=== PATIENT | male | born 1940 | race Caucasian/White ===

== ENCOUNTER 2020-04-27 12:20 | Emergency (ER) | payer OTHER ==
[2020-04-27] MEDS ORDERED: TETANUS & DIPHTHERIA TOX,ADULT 0.5 ML VIAL ONE (14:29)
--- NOTE | 2020-04-27 14:59 | ER ---
Nurse's Notes [facility] Name: Sushant Beebe Age: 79 yrs Sex: Male : 1940 Arrival Date: 04/27/2020 Time: 12:23 Bed 19 Private MD: Diagnosis: Other slipping, tripping and stumbling and falls;Pain in left knee;Pain in right knee;Cellulitis of left lower limb Presentation: 04/27 12:30 Chief complaint: Patient states: Fell 2 nights ago. Knocked over a tray when getting ll1 out of bed. Both legs got caught under the bed, abrasions noted. Bilateral leg pain since. Coronavirus screen: Client denies travel out of the [place] in the last 14 days. At this time, the client does not indicate any symptoms associated with coronavirus-19. Ebola Screen: Patient denies travel to an Ebola-affected area in the 21 days before illness onset. Initial Sepsis Screen: Does the patient meet any 2 criteria? No. Patient's initial sepsis screen is negative. Risk Assessment: Do you want to hurt yourself or someone else? Patient reports no desire to harm self or others. Onset of symptoms was April 25, 2020. 12:30 Method Of Arrival: Wheelchair ll1 12:30 Acuity: JAYLON 3 ll1 14:53 Care prior to arrival: None. Mechanism of Injury: Fall from standing position. Trauma ph event details: Injury occurred in the [facility], Injury occurred: at home. Injury occurred: April 27, 2020. 14:54 Initial Sepsis Screen: Does the patient have a suspected source of infection? No. ph Patient's initial sepsis screen is negative. Trauma Activation: Not Applicable Physician: ED Physician; Name: ; Notified At: ; Arrived At: Physician: General Surgeon; Name: ; Notified At: ; Arrived At: Physician: Radiology; Name: ; Notified At: ; Arrived At: Physician: Respiratory; Name: ; Notified At: ; Arrived At: Physician: Lab; Name: ; Notified At: ; Arrived At: Historical: - Allergies: 12:32 No Known Allergies; ll1 - PMHx: 12:32 blind in L eye; CVA; Pacemaker; Hypertension; Diabetes - NIDDM; CHF; COPD; blood clot ll1 in R leg; CAD; - PSHx: 12:32 pacemaker; Cholecystectomy; knee replacement; ll1 - Immunization history:: Flu vaccine is not up to date. - Social history:: Smoking status: Patient/guardian denies using tobacco, the patient reports quitting approximately 15 years ago. - Immunization history: Last tetanus immunization: unknown. Screenin:52 Abuse screen: Denies threats or abuse. Denies injuries from another. Nutritional ph screening: No deficits noted. Tuberculosis screening: No symptoms or risk factors identified. Fall Risk None identified. Primary Survey: 14:51 NO uncontrolled hemorrhage observed. A: The patient is alert. Airway: patent, No ph supplemental oxygen in use on arrival. Oral cavity: clear. Breathing/Chest: Respiratory pattern: regular, Respiratory effort: spontaneous, unlabored. Circulation: Skin color: pink, Skin temperature: warm, dry. Disability Alert. Exposure/Environment: There is no evidence of uncontrolled external bleeding. Obvious injury(ies) are noted at this time: abrasions to bilateral legs, no bleeding noted. 16:28 Reassessment Airway Airway Patent Breathing/Chest Respiratory pattern Regular ph Respiratory effort Spontaneous Unlabored Circulation Color Renova Temperature Warm Dry Disability Alert. Assessment: 14:50 General: Appears in no apparent distress. comfortable, Behavior is calm, cooperative, ph appropriate for age, Denies fever, feeling ill. Pain: Complains of pain in right leg and left leg. Neuro: Level of Consciousness is awake, alert, obeys commands, Oriented to person, place, time, situation. Cardiovascular: Capillary refill < 3 seconds in bilateral fingers Patient's skin is warm and dry. Respiratory: Airway is patent Respiratory effort is even, unlabored, Respiratory pattern is regular, symmetrical. GI: No signs and/or symptoms were reported involving the gastrointestinal system. Derm: Skin is healthy with good turgor, Skin is pink, warm \T\ dry. Musculoskeletal: Circulation, motion, and sensation intact. Range of motion: intact in all extremities. Injury Description: Abrasion sustained to right leg and left leg is multiple abrasions noted to front of bilateral legs from knees down. 15:28 Reassessment: Patient appears in no apparent distress at this time. Patient and/or ph family updated on plan of care and expected duration. Pain level reassessed. Patient is alert, oriented x 3, equal unlabored respirations, skin warm/dry/pink. D/C pending Xray results of L leg. 16:24 Reassessment: Patient appears in no apparent distress at this time. Patient and/or ph family updated on plan of care and expected duration. Pain level reassessed. Patient is alert, oriented x 3, equal unlabored respirations, skin warm/dry/pink. Abrasion to R great toe cleaned and bandage, no signs of infection or active bleeding noted. Vital Signs: 12:30 Pulse 70; Resp 18; Temp 98.0; Pulse Ox 98% ; Weight 90.72 kg; Height 6 ft. 0 in. ll1 (182.88 cm); Pain 8/10; 12:33 BP 104 / 77; ll1 16:26 BP 109 / 78; Pulse 68; Resp 18; Temp 97.8; Pulse Ox 99% on R/A; ph 12:30 Body Mass Index 27.12 (90.72 kg, 182.88 cm) ll1 Orlando Coma Score: 14:52 Eye Response: spontaneous(4). Verbal Response: oriented(5). Motor Response: obeys ph commands(6). Total: 15. 16:26 Eye Response: spontaneous(4). Verbal Response: oriented(5). Motor Response: obeys ph commands(6). Total: 15. Trauma Score (Adult): 14:52 Eye Response: spontaneous(1); Verbal Response: oriented(1); Motor Response: obeys ph commands(2); Systolic BP: > 89 mm Hg(4); Respiratory Rate: 10 to 29 per min(4); Sandy Score: 15; Trauma Score: 12 16:26 Eye Response: spontaneous(1); Verbal Response: oriented(1); Motor Response: obeys ph commands(2); Systolic BP: > 89 mm Hg(4); Respiratory Rate: 10 to 29 per min(4); Orlando Score: 15; Trauma Score: 12 ED Course: 12:23 Patient arrived in ED. mr 12:31 Triage completed. ll1 12:33 Arm band placed on. ll1 12:38 Jarod Oropeza MD is Attending Physician. kdr 14:10 Jp Camarena, RN is Primary Nurse. ll1 14:12 Laura Bhatia, RN is Primary Nurse. ph 14:54 Patient has correct armband on for positive identification. Placed in gown. Bed in low ph position. Call light in reach. Side rails up X 1. Pulse ox on. NIBP on. Door closed. Noise minimized. 14:54 Patient maintains SpO2 saturation greater than 95% on room air. Thermoregulation: warm ph blanket given to patient. 15:03 Knee Left 3 View XRAY In Process Unspecified. EDMS 15:45 Wound care: to abrasion, located on left leg and right leg was cleaned with Hibiclens, ph irrigated with normal saline, dressed with Neosporin, Kerlix. 15:48 Knee Right 3 View XRAY In Process Unspecified. EDMS 16:28 No provider procedures requiring assistance completed. Patient did not have IV access ph during this emergency room visit. Administered Medications: 15:23 Drug: Tetanus-Diphtheria Toxoid Adult 0.5 ml {Toe Stapler: iTiffin. Exp: ph 09/29/2022. Lot #: [id number]. } Route: IM; Site: right deltoid; 16:28 Follow up: Response: No adverse reaction ph 16:23 Drug: Ibuprofen 600 mg Route: PO; ph 16:29 Follow up: Response: No adverse reaction ph 16:24 Drug: KeFLEX 500 mg Route: PO; ph 16:28 Follow up: Response: No adverse reaction ph Intake: 14:57 PO: 0ml; Total: 0ml. ph 16:26 PO: 0ml; Total: 0ml. ph Output: 14:57 Urine: 0ml; Total: 0ml. ph 16:26 Urine: 0ml; Total: 0ml. ph Outcome: 14:58 Discharge ordered by . kdr 16:28 Discharged to home via wheelchair, with family. ph 16:28 Condition: good 16:28 Discharge instructions given to patient, Instructed on discharge instructions, follow up and referral plans. medication usage, Demonstrated understanding of instructions, follow-up care, medications, Prescriptions given X 1. 16:28 Patient's length of stay was not longer than 2 hours. ph 16:29 Patient left the ED. ph Signatures: Dispatcher [employer] EDMS Jarod Oropeza MD MD kdr Rivera, Carlita Laura Bhatia RN RN ph Jp Camarena RN RN [facility]
--- NOTE | 2020-04-27 14:59 | EDPHYS ---
Physician Documentation [facility] Name: Sushant Beebe Age: 79 yrs Sex: Male : 1940 Arrival Date: 04/27/2020 Time: 12:23 Bed 19 Private MD: ED Physician Jarod Oropeza HPI: 04/28 10:14 This 79 yrs old Male presents to ER via Wheelchair with complaints of Fall kdr Injury. 10:14 Details of fall: The patient fell from seated position, off the edge of a bed. Onset: kdr The symptoms/episode began/occurred suddenly, 2 day(s) ago. Associated injuries: The patient sustained right carr, anterior aspect of right ankle, left carr and anterior aspect of left ankle, abrasion, contusion, ecchymosis, painful injury. 10:14 Severity of symptoms: At their worst the symptoms were mild, in the emergency kdr department the symptoms are unchanged. The patient has not experienced similar symptoms in the past. The patient has not recently seen a physician. Historical: - Allergies: 04/27 12:32 No Known Allergies; ll1 - PMHx: 12:32 blind in L eye; CVA; Pacemaker; Hypertension; Diabetes - NIDDM; CHF; COPD; blood clot ll1 in R leg; CAD; - PSHx: 12:32 pacemaker; Cholecystectomy; knee replacement; ll1 - Immunization history:: Flu vaccine is not up to date. - Social history:: Smoking status: Patient/guardian denies using tobacco, the patient reports quitting approximately 15 years ago. - Immunization history: Last tetanus immunization: unknown. ROS: 04/28 10:14 Constitutional: Negative for fever, chills, and weight loss, Eyes: Negative for injury, kdr pain, redness, and discharge, ENT: Negative for injury, pain, and discharge, Neck: Negative for injury, pain, and swelling, Cardiovascular: Negative for chest pain, palpitations, and edema, Respiratory: Negative for shortness of breath, cough, wheezing, and pleuritic chest pain, Abdomen/GI: Negative for abdominal pain, nausea, vomiting, diarrhea, and constipation, Back: Negative for injury and pain, : Negative for injury, bleeding, discharge, and swelling, Neuro: Negative for headache, weakness, numbness, tingling, and seizure activity. Psych: Negative for depression, anxiety, suicide ideation, homicidal ideation, and hallucinations, Allergy/Immunology: Negative for hives, rash, and allergies, Endocrine: Negative for neck swelling, polydipsia, polyuria, polyphagia, and marked weight changes, Hematologic/Lymphatic: Negative for swollen nodes, abnormal bleeding, and unusual bruising. MS/extremity: Positive for injury or acute deformity, abrasion, erythema, pain, swelling, tenderness, of the right carr and left carr. Exam: 10:14 Constitutional: This is a well developed, well nourished patient who is awake, alert, kdr and in no acute distress. Head/Face: Normocephalic, atraumatic. Eyes: Pupils equal round and reactive to light, extra-ocular motions intact. Lids and lashes normal. Conjunctiva and sclera are non-icteric and not injected. Cornea within normal limits. Periorbital areas with no swelling, redness, or edema. Neck: Trachea midline, no thyromegaly or masses palpated, and no cervical lymphadenopathy. Supple, full range of motion without nuchal rigidity, or vertebral point tenderness. No Meningismus. Chest/axilla: Normal chest wall appearance and motion. Nontender with no deformity. No lesions are appreciated. Cardiovascular: Regular rate and rhythm with a normal S1 and S2. No gallops, murmurs, or rubs. Normal PMI, no JVD. No pulse deficits. Respiratory: Lungs have equal breath sounds bilaterally, clear to auscultation and percussion. No rales, rhonchi or wheezes noted. No increased work of breathing, no retractions or nasal flaring. Abdomen/GI: Soft, non-tender, with normal bowel sounds. No distension or tympany. No guarding or rebound. No evidence of tenderness throughout. Back: No spinal tenderness. No costovertebral tenderness. Full range of motion. Neuro: Awake and alert, GCS 15, oriented to person, place, time, and situation. Cranial nerves II-XII grossly intact. Motor strength 5/5 in all extremities. Sensory grossly intact. Cerebellar exam normal. Normal gait. Psych: Awake, alert, with orientation to person, place and time. Behavior, mood, and affect are within normal limits. 10:14 Skin: injury, abrasion(s), small abrasion noted, of the right carr, anterior aspect of right ankle, left carr and anterior aspect of left ankle, avulsion(s), a very small Vital Signs: 04/27 12:30 Pulse 70; Resp 18; Temp 98.0; Pulse Ox 98% ; Weight 90.72 kg; Height 6 ft. 0 in. ll1 (182.88 cm); Pain 8/10; 12:33 BP 104 / 77; ll1 16:26 BP 109 / 78; Pulse 68; Resp 18; Temp 97.8; Pulse Ox 99% on R/A; ph 12:30 Body Mass Index 27.12 (90.72 kg, 182.88 cm) ll1 Orlando Coma Score: 14:52 Eye Response: spontaneous(4). Verbal Response: oriented(5). Motor Response: obeys ph commands(6). Total: 15. 16:26 Eye Response: spontaneous(4). Verbal Response: oriented(5). Motor Response: obeys ph commands(6). Total: 15. Trauma Score (Adult): 14:52 Eye Response: spontaneous(1); Verbal Response: oriented(1); Motor Response: obeys ph commands(2); Systolic BP: > 89 mm Hg(4); Respiratory Rate: 10 to 29 per min(4); Corn Score: 15; Trauma Score: 12 16:26 Eye Response: spontaneous(1); Verbal Response: oriented(1); Motor Response: obeys ph commands(2); Systolic BP: > 89 mm Hg(4); Respiratory Rate: 10 to 29 per min(4); Orlando Score: 15; Trauma Score: 12 MDM: 14:58 Patient medically screened. kdr 04/28 10:14 Data reviewed: vital signs, nurses notes, lab test result(s), radiologic studies. kdr Counseling: I had a detailed discussion with the patient and/or guardian regarding: the historical points, exam findings, and any diagnostic results supporting the discharge/admit diagnosis, lab results, radiology results, the need for outpatient follow up. 04/27 14:09 Order name: Knee Left 3 View XRAY kdr 04/27 14:57 Order name: Knee Right 3 View XRAY kdr 04/27 14:09 Order name: Misc. Order: Clean wounds on legs and feet; Complete Time: 15:23 kdr Administered Medications: 04/27 15:23 Drug: Tetanus-Diphtheria Toxoid Adult 0.5 ml {Chronometer Assembler: [employer]. Exp: ph 09/29/2022. Lot #: [id number]. } Route: IM; Site: right deltoid; 16:28 Follow up: Response: No adverse reaction ph 16:23 Drug: Ibuprofen 600 mg Route: PO; ph 16:29 Follow up: Response: No adverse reaction ph 16:24 Drug: KeFLEX 500 mg Route: PO; ph 16:28 Follow up: Response: No adverse reaction ph Disposition: 04/27/20 14:58 Discharged to Home. Impression: Other slipping, tripping and stumbling and falls, Pain in left knee, Pain in right knee, Cellulitis of left lower limb. - Condition is Stable. - Discharge Instructions: Joint Pain, Musculoskeletal Pain, Knee Pain, Cellulitis, Adult, [id number]. - Prescriptions for Ibuprofen 600 mg Oral Tablet - take 1 tablet by ORAL route every 6 hours As needed take with food; 12 tablet. - Medication Reconciliation Form, Thank You Letter form. - Follow up: Private Physician; When: 2 - 3 days; Reason: If symptoms return, Further diagnostic work-up, Recheck today's complaints, Continuance of care, Re-evaluation by your physician. - Problem is new. - Symptoms have improved. Signatures: Dispatcher [employer] EDMS Jarod Oropeza MD MD kdr Laura Bhatia RN RN ph Jp Camarena RN RN ll1 Corrections: (The following items were deleted from the chart) 15:41 14:58 04/27/2020 14:58 Discharged to Home. Impression: Urinary tract infection, site kdr not specified; Cellulitis of right lower limb. Condition is Stable. Forms are Medication Reconciliation Form, Thank You Letter, Antibiotic Education, Prescription Opioid Use. Follow up: Private Physician; When: 2 - 3 days; Reason: If symptoms return, Further diagnostic work-up, Recheck today's complaints, Continuance of care, Re-evaluation by your physician. Problem is new. Symptoms have improved. kdr 16:29 15:41 04/27/2020 14:58 Discharged to Home. Impression: Other slipping, tripping and ph stumbling and falls; Pain in left knee; Pain in right knee; Cellulitis of left lower limb. Condition is Stable. Discharge Instructions: Cellulitis, Adult, Urinary Tract Infection, Adult, [id number]. Prescriptions for Cipro 500 mg Oral Tablet - take 1 tablet by ORAL route every 12 hours for 3 days; 6 tablet. and Forms are Medication Reconciliation Form, Thank You Letter, Antibiotic Education. Follow up: Private Physician; When: 2 - 3 days; Reason: If symptoms return, Further diagnostic work-up, Recheck today's complaints, Continuance of care, Re-evaluation by your physician. Problem is new. Symptoms have improved. kdr
[2020-04-27] MEDS ORDERED: CEPHALEXIN 250 MG CAP ONE (16:18)
[2020-04-27] MEDS ORDERED: IBUPROFEN 200 MG TAB PO ONE (16:19)
[2020-04-27] MEDS ORDERED: IBUPROFEN 400 MG TAB ONE (16:19)
[2020-04-27 16:37] VITALS: BP 109/78; TEMP 97.8; O2SAT 99
--- NOTE | 2020-04-28 12:23 | RAD REPORT ---
EXAM DESCRIPTION: RAD - Knee Right 3 View - 04/28/2020 7:49 am CLINICAL HISTORY: PAIN COMPARISON: No comparisons FINDINGS: Total knee arthroplasty noted. A small joint effusion is present. No hardware loosening or infection. Mild atherosclerosis. Focally prominent soft tissue swelling is seen along the medial asp ect of the knee.
--- NOTE | 2020-04-28 12:26 | RAD REPORT ---
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 Vascular calcific ation is seen. No acute fracture or dislocation. No joint effusion.
== END 2020-04-27 16:29 | disposition home or self-care (01) ==
LOC: ER 12:20
DX: L03.116 Cellulitis of left lower limb (principal); M25.561 Pain in right knee; W06.XXXA Fall from bed, initial encounter; Y93.89 Activity, other specified; Y92.9 Unspecified place or not applicable; I10 Essential (primary) hypertension; Z23 Encounter for immunization; Z95.0 Presence of cardiac pacemaker
CPT/HCPCS: 90471; 90714; 99284